=== PATIENT | female | born 1980 | race Hispanic/Latino ===

== ENCOUNTER 2022-04-14 11:06 | Emergency (ER) | payer MEDICAID ==
[2022-04-14 11:15] VITALS: BP 112/68
[2022-04-14 11:39] VITALS: BP 121/70
[2022-04-14 11:57] VITALS: BP 121/70
== END 2022-04-14 11:59 ==
LOC: ED 11:06
DX: O09.523 Supervision of elderly multigravida, third trimester (principal); Z3A.39 39 weeks gestation of pregnancy; R10.30 Lower abdominal pain, unspecified